=== PATIENT | male | born 1970 | race African-American/Black ===

== ENCOUNTER 2022-01-08 16:25 | Inpatient (IN) | payer OTHER ==
[2022-01-08 17:33] VITALS: BMI 26.4
[2022-01-08] MEDS ORDERED: MAGNESIUM CITRATE 300 ML BOTTLE PO PRN (19:15)
[2022-01-08] MEDS ORDERED: BISMUTH SUBSALICYLATE 524 MG/30 ML PO PRN (19:15)
[2022-01-08] MEDS ORDERED: MENTHOL/PHENOL 1 EACH UD MM PRN (19:15)
[2022-01-08] MEDS ORDERED: ONDANSETRON *ODT* 4 MG TABLET SL PRN (19:15)
[2022-01-08] MEDS ORDERED: DICYCLOMINE HCL 10 MG CAPSULE PO PRN (19:15)
[2022-01-08] MEDS ORDERED: IBUPROFEN 400 MG TABLET (FP) PO PRN (19:15)
[2022-01-08] MEDS ORDERED: diazePAM 5 MG TABLET PO ONE (19:15)
[2022-01-08] MEDS ORDERED: NICOTINE POLACRILEX 2 MG GUM BUC PRN (19:15)
[2022-01-08] MEDS ORDERED: MAGNESIUM HYDROX 2400MG/30ML ORAL SUSPENSION 30 ML CUP PO PRN (19:15)
[2022-01-08] MEDS ORDERED: MAG HYDROX/AL HYDROX/SIMETH 30 ML UNIT-DOSE CUP PO PRN (19:15)
[2022-01-08] MEDS ORDERED: ACETAMINOPHEN 325 MG TABLET (FP) PO PRN ×2 (19:15)
[2022-01-08] MEDS ORDERED: LOPERAMIDE HCL 2 MG CAPSULE PO PRN (19:15)
[2022-01-08] MEDS ORDERED: DICLOFENAC SODIUM 75 MG TABLET.DR PO PRN (19:18)
[2022-01-08] MEDS ORDERED: CYCLOBENZAPRINE HCL 5 MG TABLET PO PRN (19:20)
[2022-01-08] MEDS ORDERED: CYCLOBENZAPRINE HCL 10 MG TABLET (FP) PO PRN (21:07)
[2022-01-08] MEDS: ATORVASTATIN CA 10 MG TABLET (FP) PO SCH (22:01)
[2022-01-08] MEDS: THIAMINE HCL 100 MG TABLET (FP) PO SCH (22:01)
[2022-01-08] MEDS: MELATONIN 5 MG TABLETS PO SCH (22:01)
[2022-01-08] MEDS: diazePAM 5 MG TABLET PO SCH (22:01)
[2022-01-09] MEDS: diazePAM 5 MG TABLET PO SCH ×4 (06:14→22:25)
[2022-01-09] MEDS: NICOTINE 10 MG CARTRIDGE (INHALER) IH PRN (07:01)
[2022-01-09] MEDS: amLODIPine BESYLATE 10 MG TABLET (FP) PO SCH (10:47)
[2022-01-09] MEDS: hydrOXYzine PAMOATE 25 MG CAPSULE (FP) PO PRN ×2 (10:47→18:54)
[2022-01-09] MEDS: PRENATAL VITAMINS W/ FOLIC ACID TABLET (FP) PO SCH (10:48)
[2022-01-09] MEDS: diazePAM 5 MG TABLET PO PRN ×2 (14:44→18:54)
[2022-01-09] MEDS: THIAMINE HCL 100 MG TABLET (FP) PO SCH (22:25)
[2022-01-09] MEDS: MELATONIN 5 MG TABLETS PO SCH ×2 (22:25→22:44)
[2022-01-09] MEDS: ATORVASTATIN CA 10 MG TABLET (FP) PO SCH (22:25)
[2022-01-10] MEDS: diazePAM 5 MG TABLET PO SCH ×3 (06:23→22:09)
[2022-01-10] MEDS ORDERED: DICLOFENAC SODIUM 75 MG PO PRN (10:12)
[2022-01-10] MEDS ORDERED: DICLOFENAC SODIUM 75 MG PO SCH (10:20)
[2022-01-10] MEDS: PRENATAL VITAMINS W/ FOLIC ACID TABLET (FP) PO SCH (10:29)
[2022-01-10] MEDS: amLODIPine BESYLATE 10 MG TABLET (FP) PO SCH (10:29)
[2022-01-10] MEDS: NICOTINE 10 MG CARTRIDGE (INHALER) IH PRN (10:30)
[2022-01-10] MEDS: DICLOFENAC SODIUM 75 MG PO SCH ×2 (10:33→22:04)
[2022-01-10] MEDS: hydrOXYzine PAMOATE 25 MG CAPSULE (FP) PO PRN (11:33)
[2022-01-10] MEDS: CYCLOBENZAPRINE HCL 10 MG PO SCH (22:03)
[2022-01-10] MEDS: ATORVASTATIN CA 10 MG TABLET (FP) PO SCH (22:04)
[2022-01-10] MEDS: THIAMINE HCL 100 MG TABLET (FP) PO SCH (22:04)
[2022-01-10] MEDS: MELATONIN 5 MG TABLETS PO SCH (22:05)
[2022-01-11 00:06] LABS: SARS-CoV-2 NAA Not Detected (Not Detected)
[2022-01-11] MEDS: diazePAM 5 MG TABLET PO SCH ×2 (06:38→17:56)
[2022-01-11] MEDS: NICOTINE 10 MG CARTRIDGE (INHALER) IH PRN ×2 (08:35→18:05)
[2022-01-11] MEDS: amLODIPine BESYLATE 10 MG TABLET (FP) PO SCH (09:17)
[2022-01-11] MEDS: PRENATAL VITAMINS W/ FOLIC ACID TABLET (FP) PO SCH (09:17)
[2022-01-11] MEDS: DICLOFENAC SODIUM 75 MG PO SCH ×2 (09:18→22:06)
[2022-01-11] MEDS: MELATONIN 5 MG TABLETS PO SCH (22:06)
[2022-01-11] MEDS: CYCLOBENZAPRINE HCL 10 MG PO SCH (22:06)
[2022-01-11] MEDS: THIAMINE HCL 100 MG TABLET (FP) PO SCH (22:06)
[2022-01-11] MEDS: ATORVASTATIN CA 10 MG TABLET (FP) PO SCH (22:06)
[2022-01-11] MEDS: hydrOXYzine PAMOATE 25 MG CAPSULE (FP) PO PRN (22:07)
[2022-01-12] MEDS ORDERED: diazePAM 5 MG TABLET PO ONE (06:00)
[2022-01-12 08:37] VITALS: BP 112/66; PULSE 73; TEMP 97.6
== END 2022-01-12 10:12 | disposition home or self-care (01) | DRG 775 ==
LOC: YASAS 16:25 → Y3N 18:44
PROVIDERS: ADMIT Allergy & Immunology; ATTEND Allergy & Immunology
PROC: HZ2ZZZZ Detoxification Services for Substance Abuse Treatment (ICD-10-PCS; principal; 2022-01-08)
DX: F10.230 Alcohol dependence with withdrawal, uncomplicated (principal); F12.20 Cannabis dependence, uncomplicated; F17.210 Nicotine dependence, cigarettes, uncomplicated; I10 Essential (primary) hypertension; E78.5 Hyperlipidemia, unspecified; K21.9 Gastro-esophageal reflux disease without esophagitis; Z86.19 Personal history of other infectious and parasitic diseases
CPT/HCPCS: 87811; 93005; 93010; C9803-CS; U0003; U0005

== ENCOUNTER 2022-04-04 15:00 | Inpatient (IN) | payer OTHER ==
[2022-04-04 17:45] VITALS: BMI 25.4
[2022-04-04] MEDS ORDERED: BENZOCAINE/MENTHOL (CHLORASEPTIC ) LOZENGE MM PRN (18:20)
[2022-04-04] MEDS ORDERED: MAGNESIUM CITRATE 300 ML BOTTLE PO PRN (18:20)
[2022-04-04] MEDS ORDERED: NICOTINE POLACRILEX 4 MG GUM BUC PRN (18:20)
[2022-04-04] MEDS ORDERED: ONDANSETRON *ODT* 4 MG TABLET SL PRN (18:20)
[2022-04-04] MEDS ORDERED: MAGNESIUM HYDROX 2400MG/30ML ORAL SUSPENSION 30 ML CUP PO PRN (18:20)
[2022-04-04] MEDS ORDERED: IBUPROFEN 600 MG TABLET (FP) PO PRN (18:20)
[2022-04-04] MEDS ORDERED: IBUPROFEN 400 MG TABLET (FP) PO PRN (18:20)
[2022-04-04] MEDS ORDERED: METHOCARBAMOL 500 MG TABLET PO PRN (18:20)
[2022-04-04] MEDS ORDERED: DICYCLOMINE HCL 10 MG CAPSULE PO PRN (18:20)
[2022-04-04] MEDS ORDERED: ACETAMINOPHEN 325 MG TABLET (FP) PO PRN ×2 (18:20)
[2022-04-04] MEDS ORDERED: NICOTINE 10 MG CARTRIDGE (INHALER) IH PRN (18:20)
[2022-04-04] MEDS ORDERED: BISMUTH SUBSALICYLATE 524 MG/30 ML PO PRN (18:20)
[2022-04-04] MEDS ORDERED: LOPERAMIDE HCL 2 MG CAPSULE PO PRN (18:20)
[2022-04-04] MEDS ORDERED: MAG HYDROX/AL HYDROX/SIMETH 30 ML UNIT-DOSE CUP PO PRN (18:20)
[2022-04-04] MEDS ORDERED: MELATONIN 5 MG TABLETS PO SCH (22:00)
[2022-04-04] MEDS ORDERED: THIAMINE HCL 100 MG TABLET (FP) PO SCH (22:00)
[2022-04-04] MEDS: hydrOXYzine PAMOATE 25 MG CAPSULE (FP) PO SCH (22:34)
[2022-04-05] MEDS: hydrOXYzine PAMOATE 25 MG CAPSULE (FP) PO SCH ×2 (07:12→10:33)
[2022-04-05 08:52] VITALS: BP 121/74; PULSE 81; TEMP 99.1
[2022-04-05] MEDS ORDERED: PRENATAL VITAMINS W/ FOLIC ACID TABLET (FP) PO SCH (10:00)
[2022-04-05] MEDS ORDERED: amLODIPine BESYLATE 10 MG TABLET (FP) PO SCH (10:00)
== END 2022-04-05 10:45 | disposition home or self-care (01) | DRG 775 ==
LOC: YASAS 15:00 → Y6N 19:11
PROVIDERS: ADMIT Allergy & Immunology; ATTEND Surgery
PROC: HZ2ZZZZ Detoxification Services for Substance Abuse Treatment (ICD-10-PCS; principal; 2022-04-04)
DX: F10.230 Alcohol dependence with withdrawal, uncomplicated (principal); F17.213 Nicotine dependence, cigarettes, with withdrawal; I10 Essential (primary) hypertension; E78.5 Hyperlipidemia, unspecified; K21.9 Gastro-esophageal reflux disease without esophagitis; M25.552 Pain in left hip; G89.29 Other chronic pain; Z86.19 Personal history of other infectious and parasitic diseases; Z86.69 Personal history of other diseases of the nervous system and sense organs
CPT/HCPCS: C9803-CS; U0003; U0005

== ENCOUNTER 2024-01-24 16:51 | Inpatient (IN) | payer OTHER ==
[2024-01-24 18:44] VITALS: BMI 26.2
[2024-01-24] MEDS ORDERED: IBUPROFEN 400 MG TABLET (FP) PO PRN (20:44)
[2024-01-24] MEDS ORDERED: MAGNESIUM HYDROX 2400MG/30ML ORAL SUSPENSION 30 ML CUP PO PRN (20:44)
[2024-01-24] MEDS ORDERED: BISMUTH SUBSALICYLATE 524 MG/30 ML PO PRN (20:44)
[2024-01-24] MEDS ORDERED: BENZONATATE 200 MG CAPSULE PO PRN (20:44)
[2024-01-24] MEDS ORDERED: LOPERAMIDE HCL 2 MG CAPSULE PO PRN (20:44)
[2024-01-24] MEDS ORDERED: hydrOXYzine PAMOATE 25 MG CAPSULE (FP) PO PRN (20:44)
[2024-01-24] MEDS ORDERED: BENZOCAINE/MENTHOL (CHLORASEPTIC ) LOZENGE MM PRN (20:44)
[2024-01-24] MEDS ORDERED: ACETAMINOPHEN 325 MG TABLET (FP) PO PRN (20:44)
[2024-01-24] MEDS ORDERED: POLYETHYLENE GLYCOL (HEALTHYLAX) 3350 17 GM PACKET PO PRN (20:44)
[2024-01-24] MEDS ORDERED: guaiFENesin 600 MG TABLET.ER (FP) PO PRN (20:44)
[2024-01-24] MEDS ORDERED: diazePAM 5 MG TABLET PO PRN (20:46)
[2024-01-24] MEDS: diazePAM 5 MG TABLET PO SCH (22:12)
[2024-01-24] MEDS: THIAMINE HCL 100 MG TABLET (FP) PO SCH (22:13)
[2024-01-24] MEDS: MELATONIN 5 MG TABLETS PO SCH (22:13)
[2024-01-24] MEDS: METOPROLOL TARTRATE 25 MG TABLET (FP) PO ONE (22:13)
[2024-01-24] MEDS: PANTOPRAZOLE 20 MG TABLET PO ONE (22:13)
[2024-01-24] MEDS: NICOTINE POLACRILEX 2 MG GUM BUC PRN (22:45)
[2024-01-25] MEDS: PRENATAL VITAMINS W/ FOLIC ACID TABLET (FP) PO SCH (10:20)
[2024-01-25] MEDS: amLODIPine BESYLATE 10 MG TABLET (FP) PO SCH (10:59)
[2024-01-25 12:18] LABS: HEMATOCRIT 39.1 % (35.4-49); HEMOGLOBIN 12.8 GM/dL (11.7-16.9); MCH 32.8 pg (25.7-33.7); MCHC 32.8 g/dl (32.0-35.9); MEAN PLT VOLUME 8.4 fl (7.5-11.1); PLATELET COUNT 198 10^3/uL (134-434); RBC 3.91 M/mm3 (4.00-5.60); RDW 17.5 % (11.9-15.9); WHITE BLOOD COUNT 5.8 K/mm3 (4.0-10.0)
[2024-01-25 12:37] LABS: CHLORIDE 105 mmol/L (98-107); POTASSIUM 3.8 mmol/L (3.5-5.1); SODIUM 138 mmol/L (136-145)
[2024-01-25 12:57] LABS: ALBUMIN 3.4 g/dl (3.4-5.0); BLOOD UREA NITROGEN 13.2 mg/dL (7-18); CALCIUM 9.5 mg/dL (8.5-10.1); CO2 28 mmol/L (21-32); GLUCOSE,RANDOM 95 mg/dL (74-106)
[2024-01-25 13:00] LABS: CREATININE 0.9 mg/dL (0.55-1.3); SGOT/AST 27 U/L (15-37); SGPT/ALT 30 U/L (13-61)
[2024-01-25 13:02] LABS: BILIRUBIN,TOTAL 1.2 mg/dL (0.2-1); TOT PROT 5.9 g/dl (6.4-8.2)
[2024-01-25 13:03] LABS: ALK PHOS 56 U/L (45-117)
[2024-01-25 13:14] LABS: ANION GAP 5 mmol/L (4-13)
[2024-01-25 14:44] LABS: HIV INTERPRETATION NEGATIVE (NEGATIVE)
[2024-01-25] MEDS: ATORVASTATIN CA 10 MG TABLET (FP) PO SCH (22:27)
[2024-01-26] MEDS: PANTOPRAZOLE 20 MG TABLET PO ONE
[2024-01-26] MEDS: diazePAM 5 MG TABLET PO SCH (06:04)
[2024-01-26] MEDS: FAMOTIDINE 20 MG TABLET PO SCH (10:49)
[2024-01-26] MEDS: MAG HYDROX/AL HYDROX/SIMETH 30 ML UNIT-DOSE CUP PO PRN (22:19)
[2024-01-27] MEDS: ONDANSETRON *ODT* 4 MG TABLET SL PRN (01:09)
[2024-01-27] MEDS: DICYCLOMINE HCL 10 MG CAPSULE PO PRN (01:09)
[2024-01-27] MEDS: IBUPROFEN 600 MG TABLET (FP) PO PRN (01:10)
[2024-01-27] MEDS: METHOCARBAMOL 500 MG TABLET PO PRN (01:10)
[2024-01-27] MEDS: diazePAM 5 MG TABLET PO SCH (06:34)
[2024-01-27 09:59] VITALS: BP 125/82; PULSE 69; RESP 18; TEMP 97.6
[2024-01-28] MEDS ORDERED: diazePAM 5 MG TABLET PO ONE (06:00)
== END 2024-01-27 10:12 | disposition home or self-care (01) | DRG 775 ==
LOC: YASAS 16:51 → Y3N 20:51
PROVIDERS: ADMIT Allergy & Immunology; ATTEND Surgery
PROC: HZ2ZZZZ Detoxification Services for Substance Abuse Treatment (ICD-10-PCS; principal; 2024-01-24)
DX: F10.230 Alcohol dependence with withdrawal, uncomplicated (principal); F17.210 Nicotine dependence, cigarettes, uncomplicated; F41.9 Anxiety disorder, unspecified; E78.5 Hyperlipidemia, unspecified; I10 Essential (primary) hypertension; K21.9 Gastro-esophageal reflux disease without esophagitis; Z86.19 Personal history of other infectious and parasitic diseases; Z59.01 Sheltered homelessness
CPT/HCPCS: 36415; 80053; 80307; 85027; 86593; 86780; 87389; 93005; 93010; Q0162